=== PATIENT | male | born 2005 | race Caucasian/White ===

== ENCOUNTER 2023-10-29 14:52 | Emergency (ER) | payer SELFPAY ==
[2023-10-29 15:26] VITALS: BP 131/77; PULSE 82; RESP 16; TEMP 36.6; O2SAT 98; BMI 31.2
--- NOTE | 2023-10-29 16:03 | ED.SKABFB ---
HPI - Skin/Abscess/Foreign Bdy General Chief complaint: Skin/Abscess/Foreign Body Stated complaint: abscess Time Seen by Provider: 10/29/23 17:11 Source: patient, RN notes reviewed and old records reviewed Mode of arrival: ambulatory History of Present Illness ED Provider: Kiki Dubois PA-C HPI narrative: 17-year-old male with no significant past medical history presenting to the ED complaining of painful abscess to buttock region x 5 days. Admits area open and started draining today. Reports subjective fever and chills at home. Denies difficulty or inability to have BM/urinate, abdominal pain, nausea/vomiting MD complaint: abscess/boil Related Data Allergies Allergy/AdvReac Type Severity Reaction Status Date / Time No Known Allergies Allergy Verified 10/29/23 15:26 Review of Systems Review of Systems: Constitutional: +subj Fever, + Chills ENT/Mouth: No Ear Pain, No Nasal Congestion, No sore throat, No Rhinorrhea, No Swallowing Difficulty Cardiovascular: No Chest Pain, No SOB Respiratory: No Cough Gastrointestinal: No Nausea, No Vomiting, No Diarrhea, No Constipation, No Abdominal pain Genitourinary: No Dysuria, No Urinary Frequency, No Hematuria, No Urinary Incontinence/retention, No Flank Pain Musculoskeletal: No joint pain, No Myalgias, No Joint Swelling Skin: + abscess No rash Neuro: No Weakness Yes all other systems are reviewed and are negative Constitutional: Constitutional: Reports as per [facility] Past Medical History Attestation statement: The following information was validated with the patient. Source: old records reviewed Social History Social History Advance Directives: No Advance Directives Information Provided: No Physical Exam Vital Signs: Vital Signs: Last Vital Signs Temp 97.5 F 10/29/23 17:15 Pulse 76 10/29/23 17:15 Resp 18 10/29/23 17:15 BP 132/76 10/29/23 17:15 Pulse Ox 98 10/29/23 17:15 O2 Del Method Room Air 10/29/23 17:15 BMI result Body Mass Index 31.2 Const: General: cooperative, healthy appearing and no acute distress Orientation/consciousness: patient oriented x3 Limitations: no limitations HEENT: Head: Yes normal to inspection and Yes atraumatic Ears: hearing grossly normal bilaterally General nose exam: Normal external nose present Face and sinus: Yes normal facial exam Eyes: General: appearance normal, both eyes and all related structures EOM: EOMs intact bilaterally Neck: Neck: Yes normal visual inspection and Yes no meningeal signs Resp: Effort & Inspection: normal respiratory effort and no respiratory distress Cardio: Rate: regular rate : Other: + pointing abscess to right upper gluteal cleft with some drainage. Fluctuant. No appreciable induration. Patient difficult to examine due to pain. No appreciable surrounding erythema/cellulitis No perirectal/perianal involvement General: Yes no CVA tenderness Back/Spine/Pelvis: Back: no CVA tenderness Skin: Rashes: no rashes Wounds: no wounds Neuro: General: patient oriented x3, tone normal and no meningeal signs Cranial nerves: Yes CN's II-XII intact bilaterally Gait exam (Neuro): Normal gait present Extrem: General: Yes normal to inspection Course Course Course Narrative: This is a Rapid Medical Examination (RME) performed by Marino Woods PA-C in triage. Full HPI, ROS, assessment and treatment plan per primary provider in the Main ED. 17 yo male presents to the ER for evaluation of a painful cyst on the upper part of his buttocks that started 4 days ago and has been getting worse. started draining today w/ ongoing pain. limited x-ray in triage. patient appears uncomfortable. cyst is located upper portion of gluteal cleft, unable to palpate due to pain. Plan: Full exam in [facility] -I & D performed in the ED with difficulty due to patient compliance/movement. No packing able to be placed Results discussed with patient including worrisome signs and symptoms and strict return precautions, and when to return to the emergency department. They verbalized understanding and feel safe for discharge at this time. Medications Administered Discontinued Medications Generic Name Dose Route Start Last Admin Trade Name Freq PRN Reason Stop Dose Admin Lidocaine/Epinephrine 10 ml 10/29/23 18:18 10/29/23 18:50 Lidocaine Hcl 1%/Epi 1:100,000 30 Ml Vial INFILTRATI 10/29/23 18:19 10 ml ONCE ONE Administration Lidocaine/Epinephrine 10 ml 10/29/23 18:30 10/29/23 18:50 Lidocaine Hcl 1%/Epi 1:100,000 10 Ml Vial INFILTRATI 10/29/23 18:31 Not Given ONCE ONE Medical Decision Making Medical Decision Making MDM Narrative: 17-year-old male with no significant past medical history presenting to the ED complaining of painful abscess to buttock region x 5 days. On exam vital signs stable, NAD, nontoxic appearing, appears uncomfortable. Physical exam as above with pilonidal abscess with fluctuance and pointing. Some drainage appreciated. Patient difficult to examine due to pain. No evidence of perirectal/perianal abscess. Plan: I and D, p.o. antibiotics, general surgery follow-up Please refer to course for remaining clinical decision making, interpretation of labs/imaging results, and discussions with consultants and/or family members. Differential Diagnosis Differential Diagnoses: The differential diagnosis associated with the presentation includes As above External Record Review External record reviewed: Inpatient record, Office record, Outpatient record, Prior outpatient labs, Prior outpatient radiology, Primary care record and Outside ED record Tests considered The following testing was considered but not selected: As above Prescription Management I considered prescription management with: Pain Medication and Antibiotic Procedures Abscess I/D Site: nir-rectal (Pilonidal) Local Anesthetic: lidocaine 1% and with epi Amount of anesthesia used (mL): 4 Technique: incised with blade Sent for culture/gram staining?: No Irrigation: No Packing used?: none Discharge Plan Discharge Clinical Impression: Pilonidal abscess Patient Disposition: Home, Self-Care Instructions: Pilonidal Cyst (ED) Additional Instructions: Your abscess was drained today in the ED Doxycycline and Keflex are antibiotics please take as prescribed Apply warm compresses Follow-up with general surgery as discussed If area worsens, persists, you have fever, unable to have bowel movements return to the ED immediately Referrals: [facility] [place] General Surgeons [Provider Group] Print Language: Arabic
[2023-10-29 17:15] VITALS: BP 132/76; PULSE 76; RESP 18; TEMP 36.4; O2SAT 98
== END 2023-10-29 19:01 | disposition home or self-care (01) ==
PROVIDERS: Emergency Provider Student in an Organized Health Care Education/Training Program
DX: L05.01 Pilonidal cyst with abscess (principal)
CPT/HCPCS: 10080; 99283; 99284